=== PATIENT | male | born 1985 | race Caucasian/White ===

== ENCOUNTER 2019-10-03 10:44 | Emergency (ER) | payer BC ==
[2019-10-03] MEDS ORDERED: Sodium Chloride 0.9% 1,000 ML IV ONE (10:58)
[2019-10-03] MEDS ORDERED: Ondansetron 4 MG/2 ML SDV IVPUSH ONE (10:58)
--- NOTE | 2019-10-03 11:00 | EDM.PDOC ---
ED HPI GENERAL MEDICAL PROBLEM - General Chief Complaint: Drug or Alcohol Abuse Stated Complaint: POSS ALCOHOL POSION Time Seen by Provider: 10/03/19 10:45 Source of Information: Reports: Patient History Limitations: Reports: No Limitations - History of Present Illness INITIAL COMMENTS - FREE TEXT/NARRATIVE: HISTORY AND PHYSICAL: History of present illness: Patient is a 34-year-old male who presents to the emergency room with complaints of generally feeling unwell. He states last evening he had a few mixed drinks, last drink being around 7 PM. He states this is normal for him as he is "kind of an alcoholic" and does drink 3-4 times per week. He did not drink more than usual but woke up this morning feeling generally unwell. He went to work today; feels lightheaded and nauseated. Patient denies any fever, chills, headache, change in vision, chest pain, back pain, shortness of breath or cough. Denies any abdominal pain, vomiting, diarrhea, constipation or dysuria. Has not noted any blood in urine or stool. Denies any recent injuries or trauma. No previous medical history. Denies any drug abuse. Review of systems: As per history of present illness and below otherwise all systems reviewed and negative. Past medical history: As per history of present illness and as reviewed below otherwise noncontributory. Surgical history: As per history of present illness and as reviewed below otherwise noncontributory. Social history: See social history for further information Family history: As per history of present illness and as reviewed below otherwise noncontributory. Physical exam: General: Well-developed and well-nourished 34-year-old male. Alert and oriented. Nontoxic-appearing and in no acute distress. HEENT: Atraumatic, normocephalic, pupils equal and reactive bilaterally, negative for conjunctival pallor or scleral icterus, mucous membranes moist, TMs normal bilaterally, throat clear, neck supple, nontender, trachea midline. No drooling or trismus noted. No meningeal signs. No hot potato voice noted. Lungs: Clear to auscultation, breath sounds equal bilaterally, chest nontender. Heart: S1S2, regular rate and rhythm without overt murmur Abdomen: Soft, nondistended, nontender. Negative for masses or hepatosplenomegaly. Negative for costovertebral tenderness. Skin: Intact, warm, dry. No lesions or rashes noted. Extremities: Atraumatic, moves all extremities per self without difficulty or deficits, negative for cords or calf pain. Neurovascular unremarkable. Neuro: Awake, alert, oriented. Cranial nerves II through XII unremarkable. Cerebellum unremarkable. Motor and sensory unremarkable throughout. Exam nonfocal. Notes: Patient feels improved after the IV fluids and Zofran. He has been tolerating PO. Magnesium is low, we discussed magnesium therapy with him being asymptomatic. He would like to follow-up with his primary care provider. "So basically this was just a bad hang-over". We discussed signs and symptoms that would prompt him to return to the emergency room. Supportive care measures were reviewed and discussed. Voices understanding and is agreeable to plan of care. Denies any further questions or concerns at this time. Diagnostics: CBC, CMP, EKG, Magnesium Therapeutics: IV fluids, Zofran, Magnesium Prescription: None Impression: Encounter for medical screening examination Alcohol abuse Hypomagnesium Plan: 1. Today's evaluation/lab work was within normal limits, with the exception of your magnesium being low (likely due to your alcohol use). 2. Consider decreasing your alcohol use/intake. 3. Follow up with your primary care provider as we discussed. Return to the ED as needed and as discussed. Definitive disposition and diagnosis as appropriate pending reevaluation and review of above. headache Pain Score (Numeric/FACES): 6 - Related Data Allergies Allergy/AdvReac Type Severity Reaction Status Date / Time No Known Allergies Allergy Verified 10/03/19 10:58 Home Meds: Home Meds . [No Known Home Meds] 10/03/19 [History] ED ROS GENERAL - Review of Systems Review Of Systems: Comprehensive ROS is negative, except as noted in HPI. ED EXAM, GENERAL - Physical Exam Exam: See Below (See dictation) Course - Vital Signs Last Recorded V/S: Last Vital Signs Temp 96.6 F L 10/03/19 10:58 Pulse 65 10/03/19 11:36 Resp 14 10/03/19 11:36 BP 136/93 H 10/03/19 11:36 Pulse Ox 99 10/03/19 11:36 - Orders/Labs/Meds Orders: Active Orders 24 hr Category Date Time Status EKG 12 Lead [EKG Documentation Completion] [RC] STAT Care 10/03/19 11:00 Active Labs: Laboratory Tests 10/03/19 10/03/19 Range/Units 11:09 11:09 WBC 7.19 (4.0-11.0) K/uL RBC 5.20 (4.50-5.90) M/uL Hgb 15.7 (13.0-17.0) g/dL Hct 46.5 (38.0-50.0) % MCV 89.4 (80.0-98.0) fL MCH 30.2 (27.0-32.0) pg MCHC 33.8 (31.0-37.0) g/dL RDW Std Deviation 41.0 (28.0-62.0) fl RDW Coeff of Alexa 13 (11.0-15.0) % Plt Count 237 (150-400) K/uL MPV 10.90 (7.40-12.00) fL Neut % (Auto) 62.3 (48.0-80.0) % Lymph % (Auto) 28.2 (16.0-40.0) % [place] % (Auto) 7.0 (0.0-15.0) % Eos % (Auto) 2.2 (0.0-7.0) % Baso % (Auto) 0.3 (0.0-1.5) % Neut # (Auto) 4.5 (1.4-5.7) K/uL Lymph # (Auto) 2.0 (0.6-2.4) K/uL [place] # (Auto) 0.5 (0.0-0.8) K/uL Eos # (Auto) 0.2 (0.0-0.7) K/uL Baso # (Auto) 0.0 (0.0-0.1) K/uL Nucleated RBC % 0.0 /100WBC Nucleated RBCs # 0 K/uL Sodium 138 (136-148) mmol/L Potassium 4.0 (3.5-5.1) mmol/L Chloride 100 (98-107) mmol/L Carbon Dioxide 26.6 (21.0-32.0) mmol/L BUN 9 (7.0-18.0) mg/dL Creatinine 0.9 (0.8-1.3) mg/dL Est Cr Clr Drug Dosing 122.01 mL/min Estimated GFR (MDRD) > 60.0 ml/min Glucose 109 H (74-106) mg/dL Calcium 9.7 (8.5-10.1) mg/dL Magnesium 1.6 L (1.8-2.4) mg/dL Total Bilirubin 0.4 (0.2-1.0) mg/dL AST 18 (15-37) IU/L ALT 30 (14-63) IU/L Alkaline Phosphatase 94 (46-116) U/L Total Protein 8.5 H (6.4-8.2) g/dL Albumin 4.6 (3.4-5.0) g/dL Globulin 3.9 (2.6-4.0) g/dL Albumin/Globulin Ratio 1.2 (0.9-1.6) Ethyl Alcohol < 3.0 mg/dL Meds: Medications Discontinued Medications Generic Name Dose Route Start Last Admin Trade Name Freq PRN Reason Stop Dose Admin Sodium Chloride 1,000 mls @ 999 mls/hr 10/03/19 10:58 10/03/19 11:13 Normal Saline IV 10/03/19 11:58 999 mls/hr STAT ONE Administration Magnesium Chloride 64 mg 10/03/19 11:58 Mag-64 PO 10/03/19 11:59 NOW STA Ondansetron HCl 4 mg 10/03/19 10:58 10/03/19 11:09 Zofran IVPUSH 10/03/19 10:59 4 mg ONETIME ONE Administration Departure - Departure Time of Disposition: 12:00 Disposition: Home, Self-Care 01 Clinical Impression: Encounter for medical screening examination, Alcohol abuse, Hypomagnesemia - Discharge Information Instructions: Hypomagnesemia Referrals: PCP,None [Primary Care Provider] - Forms: ED Department Discharge Additional Instructions: The following information is given to patients seen in the emergency department who are being discharged to home. This information is to outline your options for follow-up care. We provide all patients seen in our emergency department with a follow-up referral. The need for follow-up, as well as the timing and circumstances, are variable depending upon the specifics of your emergency department visit. If you don't have a primary care physician on staff, we will provide you with a referral. We always advise you to contact your personal physician following an emergency department visit to inform them of the circumstance of the visit and for follow-up with them and/or the need for any referrals to a consulting specialist. The emergency department will also refer you to a specialist when appropriate. This referral assures that you have the opportunity for follow-up care with a specialist. All of these measure are taken in an effort to provide you with optimal care, which includes your follow-up. Under all circumstances we always encourage you to contact your private physician who remains a resource for coordinating your care. When calling for follow-up care, please make the office aware that this follow-up is from your recent emergency room visit. If for any reason you are refused follow-up, please contact the [facility] at and asked to speak to the emergency department charge nurse. [facility] [address] [place] [id number] [place] [address] 1. Today's evaluation/lab work was within normal limits, with the exception of your magnesium being low (likely due to your alcohol use). 2. Consider decreasing your alcohol use/intake. 3. Follow up with your primary care provider as we discussed. Return to the ED as needed and as discussed. Sepsis Event Note - Focused Exam Vital Signs: Vital Signs Temp Pulse Resp BP Pulse Ox 10/03/19 11:36 65 14 136/93 H 99 10/03/19 10:58 96.6 F L 81 18 151/107 H 97 Date Exam was Performed: 10/03/19 Time Exam was Performed: 12:03 - My Orders Last 24 Hours: My Active Orders 10/03/19 11:00 EKG 12 Lead [EKG Documentation Completion] [RC] STAT - Assessment/Plan Last 24 Hours: My Active Orders 10/03/19 11:00 EKG 12 Lead [EKG Documentation Completion] [RC] STAT
[2019-10-03 11:50] LABS: BLOOD UREA NITROGEN,BUN 9 mg/dL (7.0-18.0); CARBON DIOXIDE,CO2 26.6 mmol/L (21.0-32.0); CHLORIDE,CL 100 mmol/L (98-107); GLUCOSE RANDOM 109 mg/dL (74-106); SODIUM,NA 138 mmol/L (136-148)
[2019-10-03] MEDS ORDERED: Magnesium Chloride 64 MG Tab.ER PO STA (11:58)
== END 2019-10-03 12:13 | disposition home or self-care (01) ==
LOC: MW.ED 10:44
DX: E83.42 Hypomagnesemia (principal); F10.10 Alcohol abuse, uncomplicated
CPT/HCPCS: 36415; 80053; 80307; 83735; 85025; 93005; 96361; 96374; 99284; A9270; J2405; J7030; 99283